=== PATIENT | male | born 1930 | race Caucasian/White ===

== ENCOUNTER 2019-02-24 12:44 | Inpatient (IN) | payer OTHER ==
[~2019-02-24] VITALS: Ht 180.3 cm; Wt 61.2 kg
[2019-02-24 12:48] VITALS: BP 136/47
[2019-02-24 13:40] LABS: ABSOLUTE NEUTROPHILS 7.1 thou/uL (1.4-8.2); BASOPHILS 0.3 % (0.0-2.0); EOSINOPHILS 0.3 % (0.0-3.0); HEMATOCRIT 44.2 % (42.0-52.0); HEMOGLOBIN 14.7 gm/dL (14.0-18.0); LYMPHOCYTES 12.9 % (24.0-44.0); MCH 29.4 pg (26.0-34.0); MCHC 33.2 g/dL (28.0-37.0); MCV 88.6 fL (80.0-100.0); MONOCYTES 7.2 % (1.0-8.0); POLYS 79.3 % (36.0-66.0); RBC 4.99 mil/uL (4.50-6.00); WBC 8.9 thou/uL (4.0-11.0)
[2019-02-24 13:49] LABS: CALCIUM 9.7 mg/dL (8.5-10.1); CREATININE 1.3 mg/dL (0.7-1.3); POTASSIUM 3.8 mmol/L (3.5-5.1)
[2019-02-24 13:54] LABS: ALBUMIN 3.2 g/dL (3.4-5.0); TOTAL BILIRUBIN 0.7 mg/dL (<0.1-1.0); TOTAL PROTEIN 6.8 g/dL (6.4-8.2)
[2019-02-24 13:58] LABS: LARGE PLATELETS OCCASIONAL
[2019-02-24 13:59] LABS: PLATELET COUNT 226 thou/uL (150-400)
[2019-02-24 14:37] LABS: URINE BLOOD NEGATIVE (Negative); URINE CLARITY CLEAR; URINE COLOR YELLOW; URINE GLUCOSE-RANDOM* NEGATIVE (Negative); URINE KETONES 1+ (Negative); URINE LEUKOCYTES-REFLEX NEGATIVE (Negative); URINE NITRITE-REFLEX NEGATIVE (Negative); URINE PROTEIN (DIPSTICK) NEGATIVE (Negative); URINE SPECIFIC GRAVITY >= 1.030 (1.005-1.035)
[2019-02-24 14:40] LABS: ICTOTEST (BILI CONFIRMATORY) Negative (Negative); URINE BILIRUBIN NEGATIVE (Negative)
[2019-02-24 15:05] VITALS: BP 138/71
--- NOTE | 2019-02-24 17:10 | NUR ---
ADMISSION NOTE: PATIENT ADMITTED TO ROOM 528 B, ORDERS DR. 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 REPORTED BY ER NURSE THAT PATIENT HAD LIVED AT HOME WITH SPOUSE UNTIL THE PAST THREE WEEKS. ADMITTED TO [facility] FOLLOWING HIS SPOUSE'S ADMISSION TO REHAB AT SAME FACILITY FOR FRACTURE OF HIP FRACTURE. PATIENT UNABLE TO STAY ALONE AT HOME ALONE. HISTORY OF SWALLOWING DIFFICULTY, NO SKIN ISSUES. LABS DONE IN E.R. VALUES NORMAL, EXCEPTION OF B.U.N. OF 28. DPOA IS DAUGHTER, ALCIDES GALAVIZ, WHO WAS CONTACTED BY THIS NURSE AT 1600, STATED THAT SHE WOULD BE HERE TO SIGN PATIENT IN ABOUT ONE HOUR FROM THAT TIME. DAUGHTER, RUY, ACCOMPANIED PATIENT TO UNIT. PATIENT BROUGHT UP ON E.R. BED; ABLE TO STAND UP AND WALK TO BED. PATIENT WEIGHED ON HOSPITAL BED, 118.08 POUNDS. ALCIDES CONTACTED BY RUY, WHO STATED TO RUY THAT PATIENT HAS LOST 18 POUNDS SINCE BEING AT [facility]. PATIENT EATS SOFT FOODS, REGULAR DIET. DIET ORDER WAS PLACED FOR OTHER CHOICE MEAL, SINCE HE WILL NOT SPECIFIC FOODS, SUCH BURGERS, OR MOST OTHER MEATS. SEE PREFERRED FOODS LIST, SUPPLIED BY [employer]. PARTIAL MEDICATIONS ORDERED BY DR. WHYTE; N.P., JESU, WILL ORDER ADDITIONAL MEDICATIONS AFTER QUANG SHORT ARRIVES SO THAT JESU IS ABLE TO MEET WITH HER.
[2019-02-24 20:10] VITALS: BP 146/76
--- NOTE | 2019-02-24 20:45 | NUR ---
Pt resting in bed at beginning of shift, he has knit hat on head and blanket from home covering his face. Pt did open his eyes upon request. Pt swallowed one bite of meds in pudding, then put his hand up to block any further intake. Bed alarm remains on. HR irreg and distant. Daughter on unit talked with admit nurse at shift change. [employer] Supervisor consult triggered per protocol.
--- NOTE | 2019-02-25 02:47 | NUR ---
Pt awakened x2 this night, one for restroom, the othertime redirected back to bed for sleep. Pt slow with gait.
--- NOTE | 2019-02-25 05:53 | NUR ---
Pt awakened 0600, pt sitting in day room, drinking juice. Pt has not been answering any questions, but following directions.
--- NOTE | 2019-02-25 07:30 | NUR ---
PT SITTING IN DINNING ROOM. PT NOT VERY TALKATIVE, PT WILL ANSWER SOME QUESTIONS. MOSTLY WITHDRAWN. PT UP WITH STAND-BY ASSIST.
[2019-02-25 07:40] VITALS: BP 159/134
[2019-02-25 09:30] VITALS: BP 159/134
[2019-02-25 11:00] VITALS: BP 119/65
[2019-02-25 11:54] VITALS: BP 119/65
[2019-02-25 12:00] VITALS: BP 119/65
--- NOTE | 2019-02-25 14:30 | NUR ---
PT UP WALKING IN HALLWAY AND SITS DOWN OR KNEELS DOWN ON FLOOR. PT NOT FALLING, JUST APPEARS TIRED.
--- NOTE | 2019-02-25 16:45 | NUR ---
DAUGHTER HER TO SEE HIM. STATED THAT HER DAD HAS LOST 30 POUNDS IN ONE MONTH SINCE HE BEEN AT [facility], SHE STATED THAT THEY DON'T HAVE HIM IN THEIR BEST INTEREST. SHE STATED THAT THEY SERVED RIBS ON BONE AND HE DIDN'T LIKE THEIR FOOD.
[2019-02-25 20:40] VITALS: BP 127/75
--- NOTE | 2019-02-26 03:33 | NUR ---
IN BED WITH EYES CLOSED UPON INITAL ASSESSMENT THIS PM-EASILY AROUSABLE TO VERBAL STIMULI AND WAS COOPERATIVE WITH TAKING HS MEDICATIONS. APPEARS SUSPICIOUS OF [id number] STAFF MOVEMENTS VERY CLOSLEY-INTENSE STARING EYE CONTACT BUT MINIMALLY VERBAL TO QUESTIONS/INQUIRIES- STATED YES/NO ONLY-DENIES C/O PAIN/DISCOMFORT
[2019-02-26 08:00] VITALS: BP 149/92
--- NOTE | 2019-02-26 10:38 | NUR ---
ASSUMED CARE AT 0715 THIS MORNING. PT. UP FOR MEALS, MEDS, GROUPS. WALKING IN THE HALLWAY AFTER BREAKFAST. GOES TO DOOR AND SITS DOWN ON HIS HEELS (HE IS NOT FALLING). GIVEN SHOWER, BEDDING CHANGED. SHIRT PUT IN LAUNDRY. HE PUT ON CLEAN CLOTHES. PT. LAYED DOWN IN BED AFTER THIS WAS FINISHED. PT. ALLOWED TO REST FOR SEVERAL HOURS.
[2019-02-26 11:03] VITALS: BP 149/92
[2019-02-26 22:25] VITALS: BP 116/54
--- NOTE | 2019-02-26 22:46 | NUR ---
ASSUMED CARE OF THE PT AT 191 PM. FOUND THE PT IN ANOTHER PT'S BEDROOM IN THE OTHER BED. ASSISTED THE PT BACK TO BED. ALERT ET NONVERBAL. WILL NOT DRINK WATER FROM HIS PITCHER OF WATER, HE DID TAKE HIS MEDICATION THOUGH. HEART RATE REGULAR. LUNGS CLEAR BILATERALLY, RESP., EVEN, AND UNLABORED. +BS HEARD IN ALL 4 QUADRANTS. +PP BILATERALLY. REMAINS ON 12 MINUTE CHECKS FOR HIS SAFETY.
--- NOTE | 2019-02-27 03:03 | NUR ---
THE PT HAS BEEN UP AND DOWN FROM HIS BED. HE HAS BEEN WANDERING AROUND THE DAYROOM, SITTING IN DIFFERENT CHAIRS, THEN HE WAS REDIRECTED BACK TO BED. APPEARS TO BE RESTING AT THIS TIME.
--- NOTE | 2019-02-27 06:06 | NUR ---
THE PT SLEPT 6.8 HOURS LAST NIGHT.
[2019-02-27 07:45] VITALS: BP 125/44
[2019-02-27 11:04] VITALS: BP 125/44
--- NOTE | 2019-02-27 11:14 | NUR ---
ASSUMED CARE AT 0600 TODAY. PT. IN BED SLEEPING WHEN RN ARRIVED. PT. REFUSED TO GET UP FOR BREAKFAST. HE GOT UP RIGHT AFTER BREAKFAST, WAS TAKEN TO THE DINING ROOM FOR BREAKFAST. AGAIN HE REFUSED TO EAT OR DRINK ANYTHING. HE STATED WANDERING THE HALLS. AT ONE POINT HE SAT DOWN ON THE FLOOR. STAFF HELPED HIM UP AND RETURNED HIM TO HIS ROOM TO LAY DOWN. HE HAS BEEN RESTING SINCE THAT TIME.
[2019-02-27 19:17] LABS: CALCIUM 9.7 mg/dL (8.5-10.1); CREATININE 1.6 mg/dL (0.7-1.3); POTASSIUM 3.6 mmol/L (3.5-5.1)
[2019-02-27 21:01] VITALS: BP 136/62
--- NOTE | 2019-02-28 01:03 | NUR ---
ORDERED IV SODIUM CHLORIDE FOR HYPONATREMIA. IV INSERTED BY [employer] TEAM LEAD [id number]. FLUIDS INFUSED UNTIL 0100. NOTICED FLUID ON THE FLOOR. PT HAD PULLED IV. APPROX 350 OF 500 INFUSED. BAND AID APPLIED TO IV SITE. PT CONFUSED BUT REDIRECTABLE. OFFERED PO FLUIDS,PT REFUSED.
[2019-02-28 01:46] VITALS: BP 136/62
--- NOTE | 2019-02-28 03:46 | NUR ---
PT RESTING COMFORTABLY. SLEPT INTERMITTANTLY, BUT RESTLESS AT TIMES. COOPERATED WITH ASSESSMENT, BUT REFUSED PO MED AT BEDTIME.
[2019-02-28 15:51] VITALS: BP 136/62
--- NOTE | 2019-02-28 16:15 | NUR ---
ASSUMED CARE AT 0715 TODAY. NO NEW PROBLEMS IDENTIFIED. HE CONTINUES TO WANDER AIMLESSLY ON THE UNIT, VERY VERY CONFUSED. AT ONE POINT HE CAME ON TO THE UNIT STARTED TO PULL HIS PANTS DOWN AND SIT ON A CHAIR STATING HE NEEDS TO USE THE RESTROOM. HE WAS TAKEN TO HIS ROOM AND SAT ON THE TOILET. HE HAS REMAINED IN HIS BED MUCH OF THE DAY. ONE DAUGHTER CAME AT 1000 TO SEE HER FATHER. SHE SPOKE WITH THE DRCaitlin AND THE S.W. STAFF WAS INFORMED THAT THE OF THE PT. IS COMING FROM THE [facility] THIS AFTERNOON AND CAN VISIT OFF HOURS. SHE DID COME AND SPEND SOME TIME WITH THE PT. AND DAUGHTER BEFORE LEAVING. PT. DID LOOK AT HIS WITH WIDE EYES WHEN SHE CAME INTO THE ROOM BUT NO OTHER EXPRESSION WAS SEEN BY FAMILY OR STAFF. SPEECH THERAPY BROUGHT PT. TO THE DINNING ROOM FOR LUNCH AND ATTEMPT TO GET HIM TO EAT. HE WAS RESISTIVE WITH THIS AND DID NOT EAT OR DRINK.
--- NOTE | 2019-02-28 16:59 | NUR ---
Pt daughter Mary met with Virgen from [facility]. Pt daughter signed the contract. SW will follow-up with pt upon discharge.
[2019-02-28 19:44] VITALS: BP 135/56
[2019-02-28 23:31] VITALS: BP 135/56
--- NOTE | 2019-03-01 04:24 | NUR ---
PT IN BED SLEEPING AT BEGINNING OF EVENING. RESTLESS AND KICKING OFF BLANKETS. ASSISTED TO BS COMMODE. ABLE TO STATE THAT HE NEEDED TO USE THE BATHROOM. OUTPUT SCANTY, 125CC. REFUSED, THEN TOOK HS PILL WITH A SWALLOW OF WATER. NOT WANTING MUCH, HOWEVER. REFUSES TO USE STRAW TO DRINK. CONFUSED MOST OF TIME, BUT OCCASIONALLY UNDERSTANDS QUESTIONS FROM STAFF. SLEPT WELL THROUGH THE NIGHT WITH ONLY PERIODIC RESLESSNESS.
[2019-03-01 07:55] VITALS: BP 158/77
--- NOTE | 2019-03-01 09:31 | NUR ---
0730: Report from [facility] shift, care assumed. Resting supine in bed, resp. shallow, rate 16-17. Skin cool, color pale. Attempted to assist pt with morning ADL's and to DR for meal. Pt refused, and yelled "stop leave me alone.". Pt allowed to rest, no scheduled meds this a.m. Will continue to monitor. VS= 158/77-66-17-97.4, 99% on R/A
[2019-03-01] MEDS ORDERED: REMERON15 MG PO (09:36)
[2019-03-01 12:08] VITALS: BP 158/77
--- NOTE | 2019-03-01 12:20 | NUR ---
Patient Name: CATHRYN KAY Admission Date: 02/24/19 DISCHARGE PLAN: Pt will be discharge to home with [facility]. Care Assessment: Pt was assessed by Dr. Watt, diagnosed will failure to thrive and Major Neurocognitive Disorder. Level II Assessment: None Transportation: Pt will be transport through [facility]. Special Instructions/Notes: Pt will need to be on hospice due to his health declining. Pt daughter signed contract to [facility]. [facility] will provide an hospice DME equipment. DISCHARGE TO HOME: [address] [place] [id number] Facility: Phone: Fax: Address: Contact Name: Phone: PCP: AB Psychiatrist:
--- NOTE | 2019-03-01 19:32 | H ---
[facility] [place] [address] HISTORY AND PHYSICAL Name: CATHRYN KAY Room #: 528B-A [facility] IN M.R.#: [id number] Admission: 02/24/19 ������������������ Attend Phys: Carlos Watt DO Discharge: 03/01/19 ������������������ Date of : [birth year] Report #: [id number] THIS REPORT FOR: //name// CC: Carlos Rodrigez DATE OF SERVICE: 02/24/2019 SOURCE OF INFORMATION: Please note the patient is severely demented, gives no reliable history. Information taken from the Emergency Room notes, notes from long-term care facility and my brief interactions with the patient. REASON FOR ADMISSION: Wandering at night, inappropriate elimination, change from baseline. HISTORY OF PRESENT ILLNESS: This is an 88-year-old male sent over from [facility] for essentially change in baseline status. The patient is dressed in [employer] paraphernalia. He is not clearly aggressive or assaultive. He does follow commands to walk from the dining area to his room. The patient denies pain or particular problems. He gives responses, but quickly deteriorates into meaningless conversation. 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 The patient responds to threat, clearly responds to commands to squeeze my fingers. Apparently, he had been cared for by his , been at [facility] about 3 weeks since, last hospital admission 17 months ago. ALLERGIES: No known allergies. REVIEW OF SYSTEMS: Cannot be reliably done due to his dementia. PHYSICAL EXAMINATION: VITAL SIGNS: Weight 61.24 kilos. Today, pulse ox 99%, BP 136/47, temperature 36.1, pulse 87 and respirations 18. GENERAL: It should be noted on exam, he weakly opens eyes to moderate amount of stimuli and then comprehensive responses in the ER. HEART: Heart sounds are regular, 1 and 2. EXTREMITIES: Pulses equal and normal in bilateral upper or lower extremities. HEENT: Mucous membranes are dry. LABORATORY DATA: Lab abnormalities, urine ketones 1+. On electrolytes, BUN 28, glucose 191. ALT 18. Albumin 3.2. Segs 79.3%. Specific gravity was greater than 1.03, otherwise negative for infection. Chest x-ray negative. Actually, a 12-lead was not done in the ER. MEDICATIONS: His retirement medications were atorvastatin 40 mg p.o. daily, buspirone 5 mg p.o. b.i.d., furosemide 20 mg p.o. daily when needed for edema, [facility] [address] [place] [address] HISTORY AND PHYSICAL Name: CATHRYN KAY Room #: 528B-A [facility] IN [facility]#: [id number] Admission: 02/24/19 ������������������ Attend Phys: Carlos Watt, Discharge: 03/01/19 ������������������ Date of : [birth year] Report #: [id number] metformin 500 mg by mouth twice a day, mirtazapine 30 mg at bedtime and Namenda 10 mg twice a day. I elected to only order the patient's mirtazapine as his vital signs are good enough and he is quite underweight. In terms of recent incidents, on 02/22/2019, he had a slow gait, nonspecific fall and he was incontinent of urine. Apparently, he was given a 1:1 caregiver. MENTAL STATUS EXAMINATION: This is a well-developed, thin, undernourished male, appearing older than stated age, reported 30-pound weight loss in the last year. Attention impaired. Concentration limited. Speech, selectively mute. No psychomotor retardation. No psychomotor agitation. Mood and affect congruent, constricted. He did not appear in danger of harming himself or others. Memory not formally tested. Insight limited. Judgement limited. Fund of knowledge below average. FORMULATION: An 88-year-old male admitted for difficult to manage behaviors at his long-term care facility. The patient's medication regimen already minimized. ASSESSMENT: Major neurocognitive disorder, likely due to Alzheimer disease with behavioral disturbance. Medical comorbidities include hyperlipidemia, abnormal weight loss, including anorexia. PLAN: Evaluate, stabilize and obtain collateral. Obtain outside records, speak to DPOA. At this point, we will minimize medications and see how he does overnight, increase activity level. elos 5-7 days STRENGTHS: He is insured, some family support. WEAKNESSES: Advancing age, failure to thrive. ��������������������������������������������� <ELECTRONICALLY SIGNED> ���������������������������������������� By: Carlos Watt DO ��������������������������������������������� [birth year] [id number] Carlos Watt DO /nt
--- NOTE | 2019-03-03 21:43 | D ---
[facility] [place] [place] [address] DISCHARGE SUMMARY Name: CATHRYN KAY Room #: 528B-A [facility] IN M.R.#: [id number] Admission: 02/24/19 ������������������ Attend Phys: Carlos Watt DO Discharge: 03/01/19 ������������������ Date of : [birth year] Report #: [id number] THIS REPORT FOR: //name// CC: Carlos Watt Sheri Mcnultygorge DATE OF SERVICE: 03/01/2019 ATTENDING PHYSICIAN: Carlos Watt DO REASON FOR ADMISSION: Reporting inappropriate elimination, intrusiveness into other patient's rooms. MACHINE STAPLER ON THE DATE OF DISCHARGE: Hospitalist DISCHARGE DIET: Comfort feeding as the patient is hospice, end of life care. DISCHARGE MEDICATIONS: Soma, mirtazapine 15 mg p.o. at bedtime. DISCHARGE PLAN: He is discharging to his daughter's home for hospice care. REASON FOR ADMISSION: Agitation. HOSPITAL COURSE: The patient was minimally engaged in activities, groups, often sleeps variably, ambulatory. Right at admission he was even attempting to do pushups on the floor. He was never violent or assaultive. LABORATORY THIS ADMISSION: Hematology: CBC within normal limits except for RDW 210, segmented neutrophil percentage 79.3, lymphocyte percentage 12.9. Chemistries from 03/02/2019: Sodium 136, potassium 4.2, creatinine 1.6, glucose 190, estimated GFR 41, calcium was 9.7, potassium 3.6, anion gap of 15. Urinalysis was negative. We did attempt to give him IV fluids. He got about 350 mL. I spoke with his daughter, Lidya, with regard to Hospice and they were in agreement with the end of life care. With the patient's poor insight, the expected life expectancy would be a couple of weeks. PHYSICAL EXAMINATION: VITAL SIGNS ON DISCHARGE: Temperature is 36.3, pulse rate 66, respirations 17, BP 158/77. MUSCULOSKELETAL: A well-developed male appearing stated age. NEUROLOGIC: Attention and concentration impaired. He had problems with aphasia. Insight impaired. Judgment impaired. Fund of knowledge impaired. Denied suicidal or homicidality, did not exhibit any self-harm behaviors. [facility] [place] [place] [address] [place] [address] DISCHARGE SUMMARY Name: CATHRYN KAY Room #: 528B-A [facility] IN M.R.#: [id number] Admission: 02/24/19 ������������������ Attend Phys: Carlos Watt DO Discharge: 03/01/19 ������������������ Date of : [birth year] Report #: [id number] PROGNOSIS: Poor, terminal. ��������������������������������������������� <ELECTRONICALLY SIGNED> ���������������������������������������� By: Carlos Watt DO ��������������������������������������������� 03/03/19 [id number] Carlos Watt DO /nt
== END 2019-03-01 12:57 | disposition home or self-care (01) | DRG 56 ==
LOC: ER 12:44 → SBH 15:20
PROVIDERS: Physician Assistant; ADMIT Psychiatry & Neurology Psychiatry
DX: G30.9 Alzheimer's disease, unspecified (principal); E43 Unspecified severe protein-calorie malnutrition; F02.81 Dementia in other diseases classified elsewhere, unspecified severity, with behavioral disturbance; R47.01 Aphasia; Z68.1 Body mass index [BMI] 19.9 or less, adult; I10 Essential (primary) hypertension; E78.5 Hyperlipidemia, unspecified; E11.9 Type 2 diabetes mellitus without complications; Z66 Do not resuscitate; Z51.5 Encounter for palliative care; Z91.83 Wandering in diseases classified elsewhere
CPT/HCPCS: 10880